=== PATIENT | male | born 1975 | race Caucasian/White ===

== ENCOUNTER 2018-10-05 16:23 | Emergency (ER) | payer OTHER, MEDICAID ==
[~2018-10-05] VITALS: Ht 190.5 cm; Wt 83.9 kg
[2018-10-05 16:26] VITALS: BP 140/105
--- NOTE | 2018-10-05 16:35 | NUR ---
42 Y/O M BIB SELF WITH C/O RIGHT FOOT PAIN X 2 WKS. NO TRAUMA OR INJURY, + BRUISING, + SWOLLEN, + REDNESS, PAINFUL WITH TOUCH AND WALKING. AAOX4, PERRL, WITH EVEN AND STEADY GAIT; PT DENIES ANY FEVER, CP, SOB, OR COUGH AT THIS TIME; PT STATES 8/10 PAIN AT THIS TIME; VSS; PATIENT POSITIONED FOR COMFORT; HOB ELEVATED; BEDRAILS UP X2; BED DOWN.
[2018-10-05 17:21] LABS: BASOPHILS # (AUTO) 0.1 K/uL (0.00-0.22); BASOPHILS % (AUTO) 1.3 % (0.0-2.0); EOSINOPHILS # (AUTO) 0.4 K/uL (0-0.4); EOSINOPHILS % (AUTO) 5.5 % (0.0-4.0); HEMATOCRIT 41.4 % (36-52); HEMOGLOBIN 13.7 g/dL (12.0-18.0); LYMPHOCYTES % (AUTO) 29.5 % (20.5-51.1); MEAN CORPUSCULAR HEMOGLOBIN 30 pg (27-31); MEAN CORPUSCULAR HGB CONC 33 g/dL (33-37); MEAN CORPUSCULAR VOLUME 92.2 fL (80-94); MONOCYTES # (AUTO) 0.7 K/uL (0.8-1.0); MONOCYTES % (AUTO) 10.3 % (1.7-9.3); NEUTROPHILS # (AUTO) 3.7 K/uL (1.8-7.7); NEUTROPHILS % (AUTO) 53.4 % (42.2-75.2); PLATELET COUNT (AUTO) 332 K/uL (140-450); RED CELL DISTRIBUTION WIDTH 13.5 % (11.6-13.7); WHITE BLOOD COUNT (AUTO) 6.9 K/uL (4.8-10.8)
[2018-10-05 17:42] LABS: ALBUMIN 3.4 g/dL (3.4-5.0); ANION GAP 6.1 (8-16); CREATININE 1.2 mg/dL (0.7-1.3); POTASSIUM 4.1 mmol/L (3.5-5.1); TOTAL BILIRUBIN 0.1 mg/dL (0.0-1.0)
[2018-10-05 17:56] VITALS: BP 135/95
--- NOTE | 2018-10-05 17:58 | NUR ---
Patient discharged with v/s stable. Written and verbal after care instructions given and explained. Patient alert, oriented and verbalized understanding of instructions. Ambulatory with steady gait. All questions addressed prior to discharge. ID band removed. Patient advised to follow up with PMD. Rx of IBUPROFEN, PERCOCET given. Patient educated on indication of medication including possible reaction and side effects. Opportunity to ask questions provided and answered.
== END 2018-10-05 17:58 | disposition home or self-care (01) ==
LOC: MED 16:23
DX: S92.341A Displaced fracture of fourth metatarsal bone, right foot, initial encounter for closed fracture (principal); F17.200 Nicotine dependence, unspecified, uncomplicated; X58.XXXA Exposure to other specified factors, initial encounter; Y93.89 Activity, other specified; Y92.89 Other specified places as the place of occurrence of the external cause; Y99.8 Other external cause status
CPT/HCPCS: 36415; 73630; 80053; 85025; 85651; 86140; 99284

== ENCOUNTER 2018-12-02 13:23 | Emergency (ER) | payer OTHER ==
[~2018-12-02] VITALS: Ht 190.5 cm; Wt 86.2 kg
[2018-12-02 13:27] VITALS: BP 161/97
--- NOTE | 2018-12-02 13:52 | NUR ---
PT AMBULATED TO BED 09.
--- NOTE | 2018-12-02 13:53 | NUR ---
BIB SELF. AAOX4. C/O NECK PAIN SHOOTING DOWN LEFT ARM X THIS MORNING. PT STATES PAIN TO NECK 04/01. UNABLE TO MOVE NECK TO THE L SIDE. PT STATES INTERMITTENT NUMBING OF L ARM FROM SHOULDER TO WRIST AT 1030 TODAY. UNABLE TO LIFT L ARM UP FULLY. CAP REFILL <3 SECS. DENIES TRAUMA OR INJURY. PT TOOK ADVIL WITH NO RELIEF. HOB UP. BED SIDE RAILS UP X1. ON LOW BED POSITION, LOCKED. ER MADE AWARE OF PT STATUS.
[2018-12-02] MEDS ORDERED: KETOROLAC 60 MG/2 ML VIAL IM ONE (14:50)
--- NOTE | 2018-12-02 17:11 | NUR ---
Patient discharged with v/s stable. Written and verbal after care instructions given and explained. Patient alert, oriented and verbalized understanding of instructions. Ambulatory with steady gait. All questions addressed prior to discharge. ID band removed. Patient advised to follow up with PMD. Rx of VALIUM 5 MG, MOTRIN 800MG given. Patient educated on indication of medication including possible reaction and side effects. Opportunity to ask questions provided and answered.
[2018-12-02 17:12] VITALS: BP 160/95
== END 2018-12-02 17:11 | disposition home or self-care (01) ==
LOC: MED 13:23
DX: S13.4XXA Sprain of ligaments of cervical spine, initial encounter (principal); R20.0 Anesthesia of skin; F17.200 Nicotine dependence, unspecified, uncomplicated; X58.XXXA Exposure to other specified factors, initial encounter; Y93.89 Activity, other specified; Y92.89 Other specified places as the place of occurrence of the external cause; Y99.8 Other external cause status
CPT/HCPCS: 81002; 96372; 99283; J1885